=== PATIENT | female | born 1995 | race Caucasian/White ===

== ENCOUNTER 2017-06-09 08:53 | Emergency (ER) | payer OTHER ==
[2017-06-09] MEDS ORDERED: IOPAMIDOL-300 100 ML VIAL IVP ONE ×2 (08:54→11:55)
--- NOTE | 2017-06-09 10:28 | ED Physician Documentation ---
History of Present Illness - Stated complaint Stated Complaint: CHEST PAINS,SOA - Chief complaint Chief Complaint: Cardiac - Additonal information Additional information: hx from pt [address] from [place] a m ago on OCP no smoker two weeks of pleuritic CP with SOA occuring approx 2 X per day and lasting 30- 60 min each no fever no cough no leg pain or swelling no abd pain denies preg fhx heart prob but not at a young age this AM was more severe, now subsided Review of Systems Constitutional: denies: Fever, Chills Cardiac: reports: Chest pain / pressure Respiratory: reports: Dyspnea. denies: Cough GI: denies: Abdominal Pain, Nausea, Vomiting : denies: Now EGA Musculoskeletal: denies: Extremity pain, Extremity swelling Immunocompromised: denies: Immunocompromised PD PAST MEDICAL HISTORY - Past Medical History Past Medical History: No - Past Surgical History Past Surgical History: No - Present Medications Home Medications: Ambulatory Orders Medication Instructions Recorded Confirmed Bcp 06/09/17 Indomethacin [Indocin] 25 mg PO TIDWM PRN #20 capsule 06/09/17 - Allergies Allergies/Adverse Reactions: Allergies Allergy/AdvReac Type Severity Reaction Status Date / Time No Known Drug Allergies Allergy Verified 06/09/17 09:13 - Social History Does the pt smoke?: No Smoking Status: Never smoker Does the pt drink ETOH?: No Does the pt have substance abuse?: No - Immunizations Immunizations are current?: Yes PD ED PE NORMAL - Vitals Vital signs reviewed: Yes - General General: Alert and oriented X 3 - HEENT HEENT: Atraumatic - Neck Neck: Supple, no meningeal sign - Cardiac Cardiac: RRR - Respiratory Respiratory: No respiratory distress, Clear bilaterally - Abdomen Abdomen: Soft, Non tender - Derm Derm: Normal color - Extremities Extremities: No edema, No calf tenderness / cord - Neuro Neuro: Alert and oriented X 3, No motor deficit Results - Vitals Vitals: Vital Signs - 24 hr 06/09/17 06/09/17 09:08 11:48 Temperature 36.4 C L 36.3 C L Heart Rate 70 70 Respiratory 18 18 Rate Blood Pressure 119/76 104/67 O2 Saturation 100 99 Oxygen O2 Source Room air - Labs Labs: Laboratory Tests 06/09/17 06/09/17 06/09/17 10:27 10:27 10:27 WBC 5.2 RBC 4.23 Hgb 13.0 Hct 36.9 L MCV 87.1 MCH 30.8 MCHC 35.3 RDW 12.4 Plt Count 278 MPV 9.2 Neut # 3.4 Lymph # 1.4 L Weber # 0.3 Eos # 0.1 Baso # 0.1 Absolute Nucleated RBC 0.00 Nucleated RBC % 0.0 D-Dimer Sodium 138 Potassium 4.0 Chloride 103 Carbon Dioxide 24 Anion Gap 11.0 BUN 8 Creatinine 0.7 Estimated GFR (MDRD) 107 Glucose 84 Calcium 9.1 Total Bilirubin 0.3 AST 15 ALT 14 Alkaline Phosphatase 28 L Troponin I < 0.04 Total Protein 7.0 Albumin 4.4 Globulin 2.6 Albumin/Globulin Ratio 1.7 Lipase 21 L Serum HCG, Qual 06/09/17 06/09/17 10:27 10:27 WBC RBC Hgb Hct MCV MCH MCHC RDW Plt Count MPV Neut # Lymph # Weber # Eos # Baso # Absolute Nucleated RBC Nucleated RBC % D-Dimer 240.0 Sodium Potassium Chloride Carbon Dioxide Anion Gap BUN Creatinine Estimated GFR (MDRD) Glucose Calcium Total Bilirubin AST ALT Alkaline Phosphatase Troponin I Total Protein Albumin Globulin Albumin/Globulin Ratio Lipase Serum HCG, Qual NEGATIVE PD MEDICAL DECISION MAKING - ED course ED course: borderline d dimer PERC + CXR neg so got CTPA which was thankfully neg Departure - Departure Disposition: Home, Self Care Clinical Impression: Pleurisy Condition: Good Instructions: ED Chest Pain Pleurisy Prescriptions: Indomethacin [Indocin] 25 mg PO TIDWM PRN #20 capsule PRN Reason: Pain Comments: Thankfully all your tests came back fine - no evidence of a heart attack, a blood clot in your lung, an aneurysm or tear of your aorta or any other dangerous problem. The pain is likely due to pleurisy which is inflammation of the lining of your lungs that causes pain when you breathe in. I think is is safe for you to go home. Recommend indocin as needed for the pain (take with food) Forms: Activity restrictions
[2017-06-09 10:43] LABS: BASOPHILS # (AUTO) 0.1 10^3/uL (0.0-0.1); BASOPHILS % (AUTO) 1.4 %; EOSINOPHILS # (AUTO) 0.1 10^3/uL (0.0-0.7); EOSINOPHILS % (AUTO) 2.2 %; LYMPHOCYTES # (AUTO) 1.4 10^3/uL (1.5-3.5); LYMPHOCYTES % (AUTO) 26.2 %; MEAN CORPUSCULAR HEMOGLOBIN 30.8 pg (27.0-31.0); MEAN CORPUSCULAR HGB CONC 35.3 g/dL (32.0-36.0); MEAN CORPUSCULAR VOLUME 87.1 fL (81.0-99.0); MEAN PLATELET VOLUME 9.2 fL (7.9-10.8); MONOCYTES # (AUTO) 0.3 10^3/uL (0.0-1.0); MONOCYTES % (AUTO) 4.9 %; NEUTROPHILS # (AUTO) 3.4 10^3/uL (1.5-6.6); NEUTROPHILS % (AUTO) 65.3 %; PLT - PLATELET COUNT 278 10^3/uL (130-450); RED BLOOD COUNT 4.23 10^6/uL (4.20-5.40); RED CELL DISTRIBUTION WIDTH 12.4 % (12.0-15.0); WHITE BLOOD COUNT 5.2 x10^3/uL (4.8-10.8)
[2017-06-09 10:55] LABS: ALBUMIN 4.4 g/dL (3.2-5.5); ALBUMIN/GLOBULIN RATIO 1.7 (1.0-2.2); BILIRUBIN,TOTAL 0.3 mg/dL (0.2-1.0); CALCIUM 9.1 mg/dL (8.5-10.3); CREATININE 0.7 mg/dL (0.4-1.0)
--- NOTE | 2017-06-09 11:01 | XRAY Preliminary Report ---
Exam: XR CHEST 2 VIEW X-RAY IMPRESSION: No radiographically apparent acute abnormality in the chest. No findings to explain the p atient's symptoms. [facility] SITE ID: [id number]
--- NOTE | 2017-06-09 11:01 | XRAY Report ---
EXAM: CHEST RADIOGRAPHY EXAM DATE: 06/09/2017 10:53 AM. CLINICAL HISTORY: Cp soa. COMPARISON: None. TECHNIQUE: 2 views. FINDINGS: Lungs/Pleura: No focal consolidation evident. No pleural effusion. No pneumothorax. Normal volumes. Mediastinum: Heart and mediastinal contours are unremarkable. Other: 4 mm calcific density projects over the posterolateral left fifth rib, seen on the frontal vie w only. This may represent a calcified pulmonary granuloma or rib enostosis. IMPRESSION: No radiographically apparent acute abnormality in the chest. No findings to explain the p atient's symptoms. [facility] Referring Provider Line: [phone] SITE ID: [id number]
[2017-06-09 11:07] LABS: HCG,QUALITATIVE BLOOD NEGATIVE
[2017-06-09] MEDS ORDERED: IOPAMIDOL-300 100 ML VIAL ONE (11:53)
--- NOTE | 2017-06-09 12:48 | CT Report ---
EXAM: CT ANGIOGRAM CHEST EXAM DATE: 06/09/2017 12:12 PM. CLINICAL HISTORY: Pleuritic chest pain, with shortness of breath. COMPARISON: None. TECHNIQUE: Routine helical imaging was performed through the chest in the pulmonary arterial phase. I V Contrast: 80 cc of Isovue 300. Reconstructions: Coronal 3-D MIP reconstructions.Sagittal and duong l. In accordance with CT protocol optimization, one or more of the following dose reduction techniques w ere utilized for this exam: automated exposure control, adjustment of mA and/or KV based on patient s ize, or use of iterative reconstructive technique. FINDINGS: Pulmonary Arteries: Diagnostic quality: Adequate through the segmental arteries. No evidence for acute or chronic pulmona ry emboli. RV/LV is within normal limits. There is no interventricular septal bowing. There is no reflux of cont rast material in the IVC. Lungs/Pleura: No consolidation, nodules, or edema. No effusions or pneumothorax. Calcified granuloma seen about the lateral left upper lobe. Mediastinum: Normal. No cardiac enlargement or adenopathy. Thoracic Aorta: Unremarkable. Upper Abdomen: Unremarkable. Other: None. IMPRESSION: 1. No evidence of acute PE or aortic aneurysm. 2. Calcified granuloma in the left upper lobe. [facility] Referring Provider Line: [phone] SITE ID: [id number]
[2017-06-09 14:09] VITALS: BP 112/68
== END 2017-06-09 14:12 | disposition home or self-care (01) ==
LOC: ED 08:53
DX: R09.1 Pleurisy (principal)
CPT/HCPCS: 36415; 71046; 71275; 80053; 83690; 84484; 84703; 85025; 85379; 93005; 99283; 99284; Q9967